=== PATIENT | male | born 1940 | race Caucasian/White ===

== ENCOUNTER 2021-02-07 16:33 | Inpatient (IN) ==
[2021-02-07] MEDS ORDERED: Naloxone 0.4 MG/ML INJ IVP PRN (22:13)
[2021-02-07 22:23] LABS: Hematocrit 20.5 % (37.5-50.1)
[2021-02-07 22:28] LABS: Hemoglobin 5.3 g/dL (12.9-16.9)
[2021-02-07] MEDS ORDERED: 0.9 % Sodium Chloride 250 ML IVC SCH (22:30)
[2021-02-07 23:11] LABS: Basophils # 0.1 K/mcL (0.0-0.2); Eosinophils % 0.5 %; Hematocrit 20.6 % (37.5-50.1); INR 1.4; Immature Granulocytes % 0.7 % (0-4); Immature Platelets 5.3 % (1.1-6.1); Lymphocytes # 1.6 K/mcL (0.6-4.6); Lymphocytes % 26.7 %; Mean Corpuscular HGB Conc 25.2 g/dL (31.6-35.5); Mean Corpuscular Hemoglobin 16.5 pg (28.0-33.3); Mean Corpuscular Volume 65.4 fL (83.0-100.0); Monocytes # 0.6 K/mcL (0.0-1.3); Monocytes % 9.9 %; Neutrophils # 3.7 K/mcL (1.6-8.9); Nucleated Red Blood Cells 0.3 /100 WBC (0); Platelet Count 211 K/mcL (140-400); Prothrombin Time 15.7 Seconds (9.4-12.1); Red Blood Count 3.15 M/mcL (4.19-5.50); Red Cell Distribution Width 25.7 % (11.5-14.5); Segmented Neutrophils % 61.2 %
[2021-02-07 23:16] LABS: Hemoglobin 5.2 g/dL (12.9-16.9)
[2021-02-07 23:26] LABS: Alanine Aminotransferase 6 Units/L (7-52); Albumin 3.7 g/dL (3.5-5.7); Alkaline Phosphatase 49 Units/L (34-104); Aspartate Amino Transferase 9 Units/L (13-39); BUN/Creatinine Ratio 13 (6-26); Bilirubin,Direct 0.2 mg/dL (0.0-0.2); Bilirubin,Indirect 0.7 mg/dL (0.0-1.0); Bilirubin,Total 0.9 mg/dL (0.3-1.0); Blood Urea Nitrogen 11 mg/dL (8-23); Calcium 8.4 mg/dL (8.6-10.3); Carbon Dioxide 24 mEq/L (23-29); Chloride 105 mEq/L (98-107); Globulin 3.7 g/dL (2.4-3.5); Glucose 100 mg/dL (70-105); Magnesium 1.8 mg/dL (1.6-2.6); Osmolality,Calculated 277 (280-300); Potassium 3.7 mEq/L (3.5-5.1); Sodium 134 mEq/L (136-145); Total Protein 7.4 g/dL (6.4-8.9); eGFR For African Americans > 60 (> 60); eGFR For Non-African Americans > 60 (> 60)
[2021-02-08 02:10] LABS: Immature Reticulocyte % 32.8 % (11.0-38.0); Retculocyte # 0.06 M/mcL (0.05-0.10); Reticulocyte % 1.9 % (1.6-2.8)
[2021-02-08 02:11] LABS: Basophils # 0.1 K/mcL (0.0-0.2); Basophils % 0.9 %; Eosinophils # 0.1 K/mcL (0.0-0.6); Eosinophils % 1.1 %; Hematocrit 19.5 % (37.5-50.1); Immature Granulocytes % 0.8 % (0-4); Immature Platelets 5.1 % (1.1-6.1); Lymphocytes % 30.1 %; Mean Corpuscular HGB Conc 26.7 g/dL (31.6-35.5); Mean Corpuscular Hemoglobin 17.1 pg (28.0-33.3); Mean Corpuscular Volume 64.1 fL (83.0-100.0); Monocytes # 0.6 K/mcL (0.0-1.3); Neutrophils # 3.8 K/mcL (1.6-8.9); Nucleated Red Blood Cells 0.3 /100 WBC (0); Platelet Count 218 K/mcL (140-400); Red Blood Count 3.04 M/mcL (4.19-5.50); Red Cell Distribution Width 25.7 % (11.5-14.5); Segmented Neutrophils % 58.1 %; White Blood Count 6.5 K/mcL (4.3-11.1)
[2021-02-08 02:17] LABS: Hemoglobin 5.2 g/dL (12.9-16.9)
[2021-02-08 02:24] LABS: BUN/Creatinine Ratio 12 (6-26); Blood Urea Nitrogen 10 mg/dL (8-23); Calcium 8.6 mg/dL (8.6-10.3); Carbon Dioxide 22 mEq/L (23-29); Chloride 105 mEq/L (98-107); Glucose 97 mg/dL (70-105); Osmolality,Calculated 277 (280-300); Potassium 3.9 mEq/L (3.5-5.1); Sodium 134 mEq/L (136-145); eGFR For African Americans > 60 (> 60); eGFR For Non-African Americans > 60 (> 60)
[2021-02-08 02:26] LABS: Iron 15 mcg/dL (65-175)
[2021-02-08 02:31] LABS: Hypochromasia Present (Not Present)
[2021-02-08 02:32] LABS: Anisocytosis 2+ (Not Present); Poikilocytosis 2+ (Not Present); Polychromasia 1+ (Not Present); Reactive Lymphocytes Present (Not Present)
[2021-02-08 02:33] LABS: Platelet Estimate Normal (Normal)
[2021-02-08 05:24] LABS: Ferritin < 8 ng/mL (20-250)
[2021-02-08 05:50] LABS: % Iron Saturation 3 % (20-55); Transferrin 340 mg/dL (203-362)
[2021-02-08] MEDS ORDERED: Pantoprazole 40 MG VIAL IVP SCH (06:00)
[2021-02-08] MEDS ORDERED: cefTRIAXone 1,000 MG in Water for inj. (sterile) 10 ML IVP SCH (09:00)
[2021-02-08 09:35] LABS: Hemoglobin 6.1 g/dL (12.9-16.9)
[2021-02-08 09:37] LABS: Hematocrit 22.2 % (37.5-50.1)
[2021-02-08] MEDS ORDERED: 0.9 % Sodium Chloride 250 ML ONE (10:21)
[2021-02-08] MEDS ORDERED: 0.9 % Sodium Chloride 250 ML IVC SCH (11:25)
[2021-02-08] MEDS ORDERED: Naloxone 0.4 MG/ML INJ IVP PRN (11:25)
[2021-02-08] MEDS ORDERED: SODIUM CHLORIDE/NAHCO3/KCL/PEG 4,000 ML SOLN.RECON PO ONE ×2 (13:42→17:00)
[2021-02-08 15:18] LABS: Hematocrit 27.2 % (37.5-50.1); Hemoglobin 7.8 g/dL (12.9-16.9)
[2021-02-08] MEDS: Pantoprazole 40 MG VIAL IVP SCH (17:16)
[2021-02-09] MEDS: Pantoprazole 40 MG VIAL IVP SCH (05:14)
[2021-02-09 06:54] VITALS: BP 124/55; PULSE 81; TEMP 98.2; O2SAT 97
[2021-02-09] MEDS ORDERED: cefTRIAXone 1,000 MG in Water for inj. (sterile) 10 ML IVP SCH (09:00)
== END 2021-02-09 12:08 | disposition left against medical advice (07) | DRG 812 ==
LOC: 2NNU
PROVIDERS: ADMIT Family Medicine; ATTEND Family Medicine